=== PATIENT | male | born 2000 | race Caucasian/White ===

== ENCOUNTER 2022-05-04 13:42 | Emergency (ER) | payer OTHER, SELFPAY ==
[2022-05-04 14:22] VITALS: BP 135/74; PULSE 97; RESP 20; TEMP 36.3; O2SAT 98; BMI 37.9
--- NOTE | 2022-05-04 14:22 | ED_ITS ---
HPI - Male Genitourinary General Chief complaint: Skin/Abscess/Foreign Body <Bri Ruelas NP - Last Filed: 05/04/22 14:25> Stated complaint: cyst on genitals <Bri Ruelas NP - Last Filed: 05/04/22 14:25> Time Seen by Provider: 05/04/22 17:40 <Bri Ruelas NP - Last Filed: 05/04/22 14:25> History of Present Illness HPI Narrative: 21-year-old male patient with past medical history of reoccurring pilonidal cyst presents to the emergency department with complaints of worsening redness and swelling over the past week. He states he last received treatment at [facility] over 6 months ago with recommendation to follow up with General surgery. Because the cyst was draining on its own and became more comfortable he did not feel the need to follow-up with surgery. Over the last 2 days he states the cyst is growing larger and has started to drain spontaneously red/brown purulent drainage. Today he is having difficulty sitting due to pain. He denies any fever, chills, difficulty with bowel movements. <Chiara Davis NP - Last Filed: 05/04/22 18:44> Onset (ago): week(s) <Chiara Davis NP - Last Filed: 05/04/22 18:44> Duration: constant <Chiara Davis NP - Last Filed: 05/04/22 18:44> Severity: moderate <Chiara Davis NP - Last Filed: 05/04/22 18:44> Severity scale (1-10): 6 <Chiara Davis NP - Last Filed: 05/04/22 18:44> Quality: aching <Chiara Davis NP - Last Filed: 05/04/22 18:44> Relieving factors: none <Chiara Davis NP - Last Filed: 05/04/22 18:44> Exacerbating factors: none <Chiara Davis NP - Last Filed: 05/04/22 18:44> Associated symptoms: Reports denies other symptoms <Chiara Davis NP - Last Filed: 05/04/22 18:44> Related Data Sexually active: No <Chiara Davis NP - Last Filed: 05/04/22 18:44> Home medications: Previous Rx's Medication Instructions Recorded cephalexin 500 mg capsule 500 mg PO QID 7 days #28 caps 05/04/22 doxycycline hyclate 100 mg capsule 100 mg PO BID 7 days #14 caps 05/04/22 <Bri Ruelas NP - Last Filed: 05/04/22 14:25> Allergies/Adverse reactions: Allergies Allergy/AdvReac Type Severity Reaction Status Date / Time No Known Allergies Allergy Verified 05/04/22 18:25 <Bri Ruelas NP - Last Filed: 05/04/22 14:25> Review of Systems Review of Systems: In addition to documented HPI above, the additional ROS was obtained: Constitutional: No Weight loss, No Fever, No Chills ENT/Mouth: No Ear Pain, No Nasal Congestion, No Sinus Pain, No Hoarseness, No sore throat, No Rhinorrhea, No Swallowing Difficulty Cardiovascular: No Chest Pain, No SOB Respiratory: No Cough, No Sputum, No Wheezing Gastrointestinal: No Nausea, No Vomiting, No Diarrhea, No Constipation, No Abdominal pain Genitourinary: No Dysuria, No Urinary Frequency, No Hematuria, No Urinary Incontinence/retention, No Urgency, No Flank Pain Musculoskeletal: No joint pain, No Myalgias, No Joint Swelling Skin: No Skin Lesions, No rash Neuro: No Weakness, No Numbness, No Paresthesias <Chiara Davis NP - Last Filed: 05/04/22 18:44> Yes all other systems are reviewed and are negative <Chiara Davis NP - Last Filed: 05/04/22 18:44> PMF Past Medical History Attestation statement: The following information was validated with the patient. <Chiara Davis NP - Last Filed: 05/04/22 18:44> Source: old records reviewed <Chiara Davis NP - Last Filed: 05/04/22 18:44> Social History Social History: Social History Advance Directives: No Advance Directives Information Provided: No <Bri Ruelas NP - Last Filed: 05/04/22 14:25> Physical Exam Vital Signs: Vital Signs: Last Vital Signs Temp 97.4 F 05/04/22 14:22 Pulse 97 05/04/22 14:22 Resp 20 05/04/22 14:22 BP 135/74 05/04/22 14:22 Pulse Ox 98 05/04/22 14:22 O2 Del Method 05/04/22 14:22 BMI result Body Mass Index 37.9 <Bri Ruelas CASEWORK SUPERVISOR - Last Filed: 05/04/22 14:25> Vital Signs: Last Vital Signs Temp 97.4 F 05/04/22 14:22 Pulse 97 05/04/22 14:22 Resp 20 05/04/22 14:22 BP 135/74 05/04/22 14:22 Pulse Ox 98 05/04/22 14:22 O2 Del Method 05/04/22 14:22 BMI result Body Mass Index 37.9 <Chiara Davis CASEWORK SUPERVISOR - Last Filed: 05/04/22 18:44> Const: General: cooperative, alert, awake and poor hygiene <Chiara Davis CASEWORK SUPERVISOR - Last Filed: 05/04/22 18:44> Nutritional Appearance: well nourished <Chiara Davis NP - Last Filed: 05/04/22 18:44> Orientation/consciousness: patient oriented x3 <Chiara Davis NP - Last Filed: 05/04/22 18:44> Limitations: no limitations <Chiara Davis CASEWORK SUPERVISOR - Last Filed: 05/04/22 18:44> HEENT: Head: Yes normal to inspection and Yes atraumatic <Chiara Davis CASEWORK SUPERVISOR - Last Filed: 05/04/22 18:44> Ears: hearing grossly normal bilaterally and external ears normal <Chiara Davis NP - Last Filed: 05/04/22 18:44> General nose exam: Normal external nose present and Normal nares present <Chiara Davis NP - Last Filed: 05/04/22 18:44> Face and sinus: Yes normal facial exam and Yes face symmetric <Chiara Davis NP - Last Filed: 05/04/22 18:44> Mouth: Normal oral and palatal mucosa present <Chiara Davis CASEWORK SUPERVISOR - Last Filed: 05/04/22 18:44> Eyes: General: appearance normal, both eyes and all related structures <Chiara Davis, CASEWORK SUPERVISOR - Last Filed: 05/04/22 18:44> Visual Clark: normal visual clark by confrontation <Chiara Davis CASEWORK SUPERVISOR - Last Filed: 05/04/22 18:44> Alignment and Position: alignment normal <Chiara Davis, CASEWORK SUPERVISOR - Last Filed: 05/04/22 18:44> Periorbital: periorbital findings normal <Chiara Davis, CASEWORK SUPERVISOR - Last Filed: 05/04/22 18:44> Eyelids: Yes eyelids normal <Chiara Davis, CASEWORK SUPERVISOR - Last Filed: 05/04/22 1 8:44> Conjunctivae: conjunctivae normal <Chiara Davis CASEWORK SUPERVISOR - Last Filed: 05/04/22 18:44> Sclerae: sclerae normal <Chiara Davis, CASEWORK SUPERVISOR - Last Filed: 05/04/22 18:44> Corneas: corneas normal <Chiara Davis, CASEWORK SUPERVISOR - Last Filed: 05/04/22 18:44> EOM: EOMs intact bilaterally <Chiara Davis, CASEWORK SUPERVISOR - Last Filed: 05/04/22 18:44> Neck: Neck: Yes normal visual inspection, Yes full ROM and Yes no lymphadenopathy <Chiara Davis, CASEWORK SUPERVISOR - Last Filed: 05/04/22 18:44> Chest: Chest palpation & inspection: normal inspection of the chest <Chiara Davis, CASEWORK SUPERVISOR - Last Filed: 05/04/22 18:44> Resp: Effort & Inspection: normal respiratory effort and not labored <Chiara Davis CASEWORK SUPERVISOR - Last Filed: 05/04/22 18:44> Auscultation: clear to auscultation bilaterally, no crackles, no rhonchi and no wheezes <Chiara Davis CASEWORK SUPERVISOR - Last Filed: 05/04/22 18:44> Cardio: Rate: regular rate <Chiara Susan, CASEWORK SUPERVISOR - Last Filed: 05/04/22 18:44> Rhythm: regular rhythm <Chiara Susan, CASEWORK SUPERVISOR - Last Filed: 05/04/22 18:44> GI: Inspection: Yes normal to inspection <Chiara Susan, CASEWORK SUPERVISOR - Last Filed: 05/04/22 18:44> Palpation (GI): Soft to palpation and nontender <Chiara Susan, CASEWORK SUPERVISOR - Last Filed: 05/04/22 18:44> Auscultation: normal bowel sounds <Chiara Jennyucsneha, CASEWORK SUPERVISOR - Last Filed: 05/04/22 18:44> Back/Spine/Pelvis: Cervical Spine: cervical ROM normal <Chiara Susan, CASEWORK SUPERVISOR - Last Filed: 05/04/22 18:44> Thoracic/Lumbar Spine: thoraco-lumbar ROM normal <Chiara Jennyucsneha, CASEWORK SUPERVISOR - Last Filed: 05/04/22 18:44> Skin: General skin exam: other (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 into hair line ) <Chiara Susan, CASEWORK SUPERVISOR - Last Filed: 05/04/22 18:44> Trauma: no lacerations or abrasions <Chiarabreanna Davis, CASEWORK SUPERVISOR - Last Filed: 05/04/22 18:44> Wounds: no wounds <Chiara Susan, CASEWORK SUPERVISOR - Last Filed: 05/04/22 18:44> Neuro: General: patient oriented x3, gait normal, tone normal and moves all extremities <Chiarabreanna Davis, CASEWORK SUPERVISOR - Last Filed: 05/04/22 18:44> Cognition (Neuro): normal cognition <Chiara Plucsneha, CASEWORK SUPERVISOR - Last Filed: 05/04/22 18:44> Motor exam (neuro): 5/5 motor strength present throughout <Chiara Susan, CASEWORK SUPERVISOR - Last Filed: 05/04/22 18:44> Extrem: General: Yes normal to inspection, Yes full ROM and Yes capillary refill normal <Chiara Susan, CASEWORK SUPERVISOR - Last Filed: 05/04/22 18:44> Psych: Appearance: grossly normal <Chiara Susan, CASEWORK SUPERVISOR - Last Filed: 05/04/22 18:44> Mental Status: mental status grossly normal <Chiara Davis NP - Last Filed: 05/04/22 18:44> Speech and movement: Normal speech and movement present <Chiara Davis NP - Last Filed: 05/04/22 18:44> Affect: normal affect <Chiara Davis NP - Last Filed: 05/04/22 18:44> Attitude: cooperative <Chiara Davis NP - Last Filed: 05/04/22 18:44> Thought process: Normal thought process present <Chiara Davis NP - Last Filed: 05/04/22 18:44> Thought content: Normal thought content present <Chiara Davis NP - Last Filed: 05/04/22 18:44> Course Course Course Narrative: This is rapid medical exam. deferred additional HPI, ROS, PE to primary pr ovider. 21 yo male healthy here with pilonidal abscess (re-occurrent) worsening over the past week with swelling, redness. VSS. <Bri Ruelas NP - Last Filed: 05/04/22 14:25> Medical Decision Making Medical Decision Making MDM Narrative: 21 year old male patient with past medical history of reoccurring pilonidal cyst presents to the emergency department with complaints of worsening redness and swelling at his left mikki cleft for over the past week. Physical exam showing 5 x 3 x 1 cm pilonidal abscess at left draining red/brown purulent drainage from proximal end of cyst. Fluctuance noted at distal area of cyst. Area cleansed with Betadine, anesthetized with 1% lidocaine with good effect, and incised. 5-10 mL red/brown purulent discharge obtained. Patient tolerated well. Cephalexin and doxycycline ordered for antibiotic coverage. Recommended to follow-up with a [facility] general surgery with contact information provided. Educated to do Sitz baths 2 times a day to help further expressed drainage. Educated to return to the emergency department with worsening drainage, infection, chills, inability to move her bowels, or any other concerning symptoms. Recommended follow-up with the primary care provider in addition to general surgeon for further treatment management. <Chiara Davis NP - Last Filed: 05/04/22 18:44> Procedures Abscess I/D Site: other (upper mikki cleft) <Chiara Davis NP - Last Filed: 05/04/22 18:44> Side (if applicable): left <Chiara Davis NP - Last Filed: 05/04/22 18:44> Local Anesthetic: lidocaine 1% <Chiara Davis NP - Last Filed: 05/04/22 18:44> Amount of anesthesia used (mL): 10 <Chiara Davis NP - Last Filed: 05/04/22 18:44> Technique: needle aspiration and incised with blade <Chiara Davis NP - Last Filed: 05/04/22 18:44> Amount of fluid expressed (mL): 5 <Chiara Davis NP - Last Filed: 05/04/22 18:44> Packing used?: none <Chiara Davis NP - Last Filed: 05/04/22 18:44> Complications: pain <Chiara Davis NP - Last Filed: 05/04/22 18:44> Discharge Plan Discharge Clinical Impression: Pilonidal abscess of mikki cleft <Bri Ruelas NP - Last Filed: 05/04/22 14:25> Patient Disposition: Home, Self-Care <Bri Ruelas NP - Last Filed: 05/04/22 14:25> Instructions: Pilonidal Cyst (ED), Sitz Bath (DC), Abscess Follow-up (ED) <Bri Ruelas NP - Last Filed: 05/04/22 14:25> Additional Instructions: You have a pilonidal cyst. This needs to be seen by a general surgeon for follow-up. This is imperative to healing. Please do a Sitz bath 2 times a day to help further expressed drainage. Two prescriptions for antibiotics have been sent to your preferred pharmacy. Please take course of antibiotics as prescribed. Please return to the emergency department with worsening drainage, infection, chills, inability to move her bowels, or any other concerning symptoms. Recommended follow-up with the primary care provider in addition to general surgeon for further treatment management. <Bri Ruelas NP - Last Filed: 05/04/22 14:25> Prescriptions: New cephalexin 500 mg capsule 500 mg PO QID 7 Days Qty: 28 0RF doxycycline hyclate 100 mg capsule 100 mg PO BID 7 Days Qty: 14 0RF <Bri Ruelas NP - Last Filed: 05/04/22 14:25> Referrals: [facility] [Provider Group] <Bri Ruelas NP - Last Filed: 05/04/22 14:25> Stand Alone Forms: Work/School Release <Bri Ruelas NP - Last Filed: 05/04/22 14:25> Print Language: Kazakh <Bri Ruelas NP - Last Filed: 05/04/22 14:25>
== END 2022-05-04 19:15 | disposition home or self-care (01) ==
PROVIDERS: Emergency Provider Emergency Medicine
DX: L05.01 Pilonidal cyst with abscess (principal)
CPT/HCPCS: 10080; 99282; 99283; 99284